=== PATIENT | male | born 2000 | race Caucasian/White ===

== ENCOUNTER 2021-12-22 19:28 | Inpatient (IN) | payer MEDICAID, OTHER ==
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
--- NOTE | 2021-12-22 20:54 | XR ---
EXAMINATION TYPE: XR chest 1V portable DATE OF EXAM: 12/22/2021 COMPARISON: NONE HISTORY: Trauma. Pain TECHNIQUE: Single view FINDINGS: Heart and mediastinum are normal. Lungs are clear. Diaphragm is normal. Bony thorax is inta ct. IMPRESSION: Normal chest.
--- NOTE | 2021-12-22 21:04 | XR ---
EXAMINATION TYPE: XR pelvis AP view DATE OF EXAM: 12/22/2021 COMPARISON: NONE HISTORY: Trauma. Pain TECHNIQUE: 2 views FINDINGS: The pelvic ring is intact. The proximal femurs and hip joints are intact. Sacroiliac joints appear normal. IMPRESSION: Normal pelvis exam. No fracture.
[2021-12-22 21:32] LABS: Amphetamine Screen,Urine Not Detected (NotDetected); Barbiturate Screen,Urine Not Detected (NotDetected); Benzodiazepines Screen,Urine Not Detected (NotDetected); Cocaine Screen,Urine Not Detected (NotDetected); Methadone Screen, Urine Not Detected (NotDetected); Opiate Screen,Urine Not Detected (NotDetected); Oxycodone Screen, Urine Not Detected (NotDetected); Phencyclidine Screen,Urine Not Detected (NotDetected); Tricyclic Antidepressant,Urine Not Detected (NotDetected); Urn Cannabinoid Scrn Not Detected (NotDetected)
[2021-12-23 02:14] LABS: Basophils % (A) 1 %; Eosinophils # (A) 0.1 k/uL (0-0.7); Eosinophils % (A) 2 %; HCT 45.1 % (39.0-53.0); HGB 14.8 gm/dL (13.0-17.5); Lymphocytes # (A) 1.8 k/uL (1.0-4.8); Lymphocytes % (A) 28 %; MCH 30.9 pg (25.0-35.0); MCHC 32.9 g/dL (31.0-37.0); MCV 94.1 fL (80.0-100.0); Mean Platelet Volume 9.7; Monocytes # (A) 0.4 k/uL (0-1.0); Monocytes % (A) 6 %; Neutrophils % (A) 62 %; Platelet Count 183 k/uL (150-450); RDW 12.8 % (11.5-15.5); WBC 6.4 k/uL (3.8-10.6)
[2021-12-23 02:22] LABS: African American GFR (CKD) >90 (>60 ml/min/1.73 sqM); Anion Gap 9 mmol/L; Blood Urea Nitrogen 11 mg/dL (9-20); Calcium 9.4 mg/dL (8.4-10.2); Carbon Dioxide 25 mmol/L (22-30); Chloride 105 mmol/L (98-107); Glucose 99 mg/dL (74-99); Non-African American GFR(CKD) >90 (>60 ml/min/1.73 sqM); Potassium 4.2 mmol/L (3.5-5.1); Sodium 139 mmol/L (137-145)
[2021-12-23] MEDS: DIVALPROEX 250 MG TABLET.DR PO SCH ×3 (15:16→20:54)
[2021-12-23] MEDS ORDERED: LORazepam 2 MG/ML INJ IM ONE (17:50)
[2021-12-23] MEDS: ARIPiprazole 10 MG TAB PO SCH (20:54)
[2021-12-24] MEDS: DIVALPROEX 250 MG TABLET.DR PO SCH ×3 (10:57→22:23)
[2021-12-24] MEDS ORDERED: LORazepam 1 MG TAB PO STA (14:15)
[2021-12-24] MEDS: ARIPiprazole 10 MG TAB PO SCH (22:24)
[2021-12-25] MEDS: DIVALPROEX 250 MG TABLET.DR PO SCH ×4 (08:57→21:02)
[2021-12-25] MEDS ORDERED: LORazepam 1 MG TAB PO PRN (12:01)
[2021-12-25] MEDS ORDERED: HALOPERIDOL LACTATE 5 MG/ML 1 ML VIAL IM PRN (12:01)
[2021-12-25] MEDS ORDERED: MAG HYDROX/AL HYDROX/SIMETH 30 ML CUP PO PRN (12:01)
[2021-12-25] MEDS ORDERED: ACETAMINOPHEN TAB 325 MG TAB PO PRN (12:01)
[2021-12-25] MEDS ORDERED: MAGNESIUM HYDROXIDE 2,400 MG/10 ML CUP PO PRN (12:01)
[2021-12-25] MEDS ORDERED: LORazepam 2 MG/ML INJ IM PRN (12:03)
[2021-12-25] MEDS ORDERED: haloperidoL 5 MG TAB PO PRN (12:03)
[2021-12-25] MEDS: ARIPiprazole 10 MG TAB PO SCH (20:39)
[2021-12-26] MEDS: DIVALPROEX 250 MG TABLET.DR PO SCH (08:09)
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
[2021-12-26] MEDS: hydrOXYzine pamoate 25 MG CAP PO SCH ×2 (15:19→22:14)
[2021-12-26 18:19] LABS: Chol/HDL Ratio 3.57 Ratio; LDL Cholesterol,Calculated 116.5 mg/dL (0.0-131.0)
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
[2021-12-26] MEDS ORDERED: DIVALPROEX ER 500 MG TAB.ER.24H PO SCH (21:00)
[2021-12-26] MEDS: ARIPiprazole 10 MG TAB PO SCH (22:14)
[2021-12-27] MEDS: hydrOXYzine pamoate 25 MG CAP PO SCH ×3 (08:50→20:58)
--- NOTE | 2021-12-27 14:29 | P.PN ---
Progress Note - Text Progress Note Date: 12/27/21 Interval History: Patient was seen resting in bed and was directable and agreeable to speak with television script writer in his room. Currently, the patient is not reporting any suicidal or homicidal ideation, and/or plan. He is not reporting any auditory or visual hallucinations. He is denying any paranoia or other delusions. He has been adherent with his medications and is not reporting any significant side effects at this time. Initially, there was a plan to discharge the patient today however the patient's family expressed significant concerns. In particular, the patient's mother reported that the patient contacted his sister and verbalized a desire to kill himself. Currently, the patient denies this. He is however agreeable to continued inpatient psychiatric admission with plans to initiate Clozaril to address psychosis as well as suicidal ideation. Mental Status Exam: General Appearance: Patient appears to be stated age is alert, directable, and cooperative. Behavior: Patient is calmly seated without any agitated behavior. Speech: Patient's speech is fluent and nonpressured. Mood/Affect: Mood is "I feel okay," affect is congruent but blunted. Suicidality/Homicidality: Patient denies having any suicidal or homicidal ideation intent or plan. Perceptions: Patient denies any visual hallucinations and denies any auditory hallucinations Though content/process: There is no evidence of any delusional thought content and thought process is linear and goal-directed. Memory and concentration: AOX3, grossly intact for the purposes of this session Judgment and insight: Improving mildly Vital Signs Temp 97.9 F 12/27/21 06:50 Pulse 67 12/27/21 06:50 Resp 17 12/27/21 06:50 BP 96/52 12/27/21 06:50 Pulse Ox 99 12/27/21 06:50 FiO2 Laboratory Results - Last 24 Hours 12/23/21 12/23/21 12/26/21 01:58 09:04 15:[address] Glu mg/dL 123 Hemoglobin A1c 5.9 Triglycerides 87.00 Cholesterol 186.00 LDL Cholesterol, Calc 116.5 VLDL Cholesterol, Calc 17.40 HDL Cholesterol 52.10 Cholesterol/HDL Ratio 3.57 Valproic Acid 50.0 Assessment Schizophrenia Cannabis use disorder Tobacco use disorder Plan: -Patient continues to meet criteria for inpatient psychiatric admission for symptom stabilization and safety. Patient has signed adult voluntary form and medication consent and was placed in patient's chart. -Medications: Increase Depakote to 1250 mg by mouth at bedtime for mood stabilization Discontinue Abilify and start Clozaril 25 mg by mouth at bedtime for schizophrenia and for suicidal ideation We will need to confirm when the patient received his last dose of Abilify aristada or maintena. Vistaril 25 mg by mouth 3 times a day for anxiety -When necessary Ativan and Haldol for agitation/aggression. -SW on board for discharge planning. Encouraged the patient to participate in milieu.
[2021-12-27] MEDS: DIVALPROEX ER 250 MG TAB.ER.24H PO SCH (20:58)
[2021-12-27] MEDS: DIVALPROEX ER 500 MG TAB.ER.24H PO SCH (20:58)
[2021-12-27] MEDS ORDERED: cloZAPine 25 MG TAB PO SCH (21:00)
[2021-12-28] MEDS: hydrOXYzine pamoate 25 MG CAP PO SCH ×3 (08:58→21:02)
[2021-12-28] MEDS: NICOTINE GUM (POLACRILEX) 2 MG GUM BUCCAL PRN ×2 (08:59→18:48)
--- NOTE | 2021-12-28 12:01 | P.PN ---
Progress Note - Text Progress Note Date: 12/28/21 Interval History: Patient was seen resting in bed and was directable and agreeable to speak with telegraphic typewriter installer in the office. Patient reports that he is feeling well. He is currently denying any suicidal or homicidal ideation, intention, and/or plan. He is denying any auditory or visual hallucinations. He reports no paranoia or other delusions. The patient denies ever contacting his family and endorsing suicidal ideation to them. He states however that he will continue to take medications and follow the recommendations of his medical team while he is here in the hospital. He is agreeable to the transition to Clozaril in order to address psychosis and suicidal thoughts. Mental Status Exam: General Appearance: Patient appears to be stated age is alert, directable, and cooperative. Behavior: Patient is calmly seated without any agitated behavior. Speech: Patient's speech is fluent and nonpressured. Mood/Affect: Mood is "doing all right" affect is congruent but constricted Suicidality/Homicidality: Patient denies having any suicidal or homicidal ideation intent or plan. Perceptions: Patient denies any visual hallucinations and denies any auditory hallucinations Though content/process: There is no evidence of any delusional thought content and thought process is linear and goal-directed. Memory and concentration: AOX3, grossly intact for the purposes of this session Judgment and insight: Improving mildly Vital Signs Temp 97.9 F 12/28/21 07:12 Pulse 72 12/28/21 07:12 Resp 16 12/28/21 07:12 BP 99/58 12/28/21 07:12 Pulse Ox 99 12/28/21 07:12 FiO2 Assessment Schizophrenia Cannabis use disorder Tobacco use disorder Plan: -Patient continues to meet criteria for inpatient psychiatric admission for symptom stabilization and safety. Patient has signed adult voluntary form and medication consent and was placed in patient's chart. -Medications: Continue Depakote 1250 mg by mouth at bedtime for mood stabilization Increase Clozaril to 50 mg by mouth at bedtime for schizophrenia and suicidal ideation We will draw CBC on Friday in anticipation of discharge on Friday. We will start metformin over this weekend in order to address possible side effects of weight gain and hyperglycemia secondary to antipsychotic medications Vistaril 25 mg by mouth 3 times a day for anxiety -When necessary Ativan and Haldol for agitation/aggression. -SW on board for discharge planning. Encouraged the patient to participate in milieu.
[2021-12-28] MEDS: cloZAPine 25 MG TAB PO SCH (21:01)
[2021-12-28] MEDS: DIVALPROEX ER 500 MG TAB.ER.24H PO SCH (21:01)
[2021-12-28] MEDS: DIVALPROEX ER 250 MG TAB.ER.24H PO SCH (21:01)
[2021-12-29] MEDS: hydrOXYzine pamoate 25 MG CAP PO SCH ×4 (08:48→21:05)
[2021-12-29] MEDS: NICOTINE GUM (POLACRILEX) 2 MG GUM BUCCAL PRN (08:48)
--- NOTE | 2021-12-29 20:07 | P.PN ---
Progress Note - Text Progress Note Date: 12/29/21 Interval history: Patient was seen resting in bed and was directable and agreeable to speak with functional tester typewriters. He reports improved mood, good sleep and appetite. At this time, patient denies any suicidal or homicidal ideations intent or plan. He denies any auditory or visual hallucinations. Patient denies any side effects from the medications and has been compliant with meds. He reports feeling "more stable" on the Clozapine. He attended one group today. Mental status exam: General Appearance: Patient appears to be stated age, laying in bed with covers on, good eye contact. Behavior: No agitated behavior. Patient is calm and directable. Speech: Patient's speech is fluent and non-pressured. Mood/Affect: Mood is improving, affect is congruent and constricted. Suicidality/Homicidality: Patient denies having any suicidal or homicidal ideation intent or plan. Perceptions: Patient denies any auditory or visual hallucinations. Though content/process: There is no evidence of any delusional thought content and thought process is linear and goal-directed. Memory and concentration: AOX3, grossly intact for the purposes of this session Judgment and insight: improving mildly Assessment/Plan: Continue with current diagnosis. Patient continues to meet criteria for in patient psychiatric admission for symptom stabilization and safety. Patient will be maintained on current psychotropic medication regimen. Monitor for medication compliance and for any psychotropic medication side effects. Will continue to monitor ongoing response to treatment. Encouraged participation in milieu.
[2021-12-29] MEDS: DIVALPROEX ER 500 MG TAB.ER.24H PO SCH (20:11)
[2021-12-29] MEDS: cloZAPine 25 MG TAB PO SCH (20:11)
[2021-12-29] MEDS: DIVALPROEX ER 250 MG TAB.ER.24H PO SCH (20:11)
[2021-12-30] MEDS: NICOTINE GUM (POLACRILEX) 2 MG GUM BUCCAL PRN ×2 (09:04→13:21)
[2021-12-30] MEDS: hydrOXYzine pamoate 25 MG CAP PO SCH ×4 (09:04→20:07)
[2021-12-30] MEDS: metFORMIN 500 MG TAB PO SCH (18:20)
--- NOTE | 2021-12-30 19:11 | P.PN ---
Progress Note - Text Progress Note Date: 12/30/21 Interval history: Patient was seen walking in the hallway and was directable and agreeable to speak with typewriter mechanic. He reports improved mood, good sleep and appetite. At this time, patient denies any suicidal or homicidal ideations intent or plan. He denies any auditory or visual hallucinations. Patient denies any side effects from the medications and has been compliant with meds. Mental status exam: General Appearance: Patient appears to be stated age, dressed in clean casual attire, good eye contact. Behavior: No agitated behavior. Patient is calm and directable. Speech: Patient's speech is fluent and non-pressured. Mood/Affect: Mood is improving, affect is congruent and constricted. Suicidality/Homicidality: Patient denies having any suicidal or homicidal ideation intent or plan. Perceptions: Patient denies any auditory or visual hallucinations. Though content/process: There is no evidence of any delusional thought content and thought process is linear and goal-directed. Memory and concentration: AOX3, grossly intact for the purposes of this session Judgment and insight: improving mildly Assessment/Plan: Continue with current diagnosis. Patient continues to meet criteria for inpatient psychiatric admission for symptom stabilization and safety. Patient will be maintained on current psychotropic medication regimen. Monitor for medication compliance and for any psychotropic medication side effects. Will continue to monitor ongoing response to treatment. Encouraged participation in milieu.
[2021-12-30] MEDS: cloZAPine 25 MG TAB PO SCH (20:06)
[2021-12-30] MEDS: DIVALPROEX ER 500 MG TAB.ER.24H PO SCH (20:07)
[2021-12-30] MEDS: DIVALPROEX ER 250 MG TAB.ER.24H PO SCH (20:07)
[2021-12-31 06:59] VITALS: BP 134/60; PULSE 61; RESP 16; TEMP 98.1
[2021-12-31] MEDS: hydrOXYzine pamoate 25 MG CAP PO SCH ×4 (10:09→20:05)
[2021-12-31] MEDS: metFORMIN 500 MG TAB PO SCH ×2 (10:09→17:06)
--- NOTE | 2021-12-31 13:47 | P.PN ---
Progress Note - Text Progress Note Date: 12/31/21 Interval History: Patient was seen resting in bed and was directable and agreeable to speak with commercial real estate underwriter in the office. Patient was that he is feeling well. He is not reporting any suicidal or homicidal ideation, intention, and/or plan today. He is not reporting any auditory or visual hallucinations. He denies any paranoia or other delusions. Patient has been adherent with his medication and is not reporting any significant side effects this time. The patient was informed that he is on metformin in order to decrease the likelihood of weight gain while being prescribed antipsychotic medication. He is in agreement with this medication. This provider discussed the plan with his father who is in agreement. Mental Status Exam: General Appearance: Patient appears to be stated age is alert, directable, and cooperative. Behavior: Patient is calmly seated without any agitated behavior. Speech: Patient's speech is fluent and nonpressured. Mood/Affect: Mood is "feeling pretty good" affect is congruent but constricted Suicidality/Homicidality: Patient denies having any suicidal or homicidal ideation intent or plan. Perceptions: Patient denies any visual hallucinations and denies any auditory hallucinations Though content/process: There is no evidence of any delusional thought content and thought process is linear and goal-directed. Memory and concentration: AOX3, grossly intact for the purposes of this session Judgment and insight: Improving mildly Vital Signs Temp 98.1 F 12/31/21 06:58 Pulse 61 12/31/21 06:58 Resp 16 12/31/21 06:58 BP 134/60 12/31/21 06:58 Pulse Ox 99 12/31/21 06:58 FiO2 Intake & Output 12/30/21 12/31/21 12/31/21 18:59 06:59 18:59 Weight 93.7 kg Assessment Schizophrenia Cannabis use disorder Tobacco use disorder Plan: -Patient continues to meet criteria for inpatient psychiatric admission for symptom stabilization and safety. Patient has signed adult voluntary form and medication consent and was placed in patient's chart. -Medications: Continue Depakote 1250 mg by mouth at bedtime for mood stabilization Continue Clozaril 50 mg by mouth at bedtime for schizophrenia and suicidal ideation We will draw CBC on Friday in anticipation of discharge on Friday. Continue metformin 500 mg by mouth twice a day with meals for side effect prophylaxis Vistaril 25 mg by mouth 3 times a day for anxiety -When necessary Ativan and Haldol for agitation/aggression. -SW on board for discharge planning. Encouraged the patient to participate in milieu.
[2021-12-31] MEDS: DIVALPROEX ER 250 MG TAB.ER.24H PO SCH (20:05)
[2021-12-31] MEDS: DIVALPROEX ER 500 MG TAB.ER.24H PO SCH (20:05)
[2021-12-31] MEDS: cloZAPine 25 MG TAB PO SCH (20:05)
[2022-01-01] MEDS: hydrOXYzine pamoate 25 MG CAP PO SCH (09:19)
[2022-01-01] MEDS: metFORMIN 500 MG TAB PO SCH (09:21)
[2022-01-01 10:10] LABS: Basophils # (A) 0.1 k/uL (0-0.2); Basophils % (A) 1 %; Eosinophils # (A) 0.1 k/uL (0-0.7); Eosinophils % (A) 1 %; HCT 51.5 % (39.0-53.0); HGB 16.1 gm/dL (13.0-17.5); Lymphocytes # (A) 1.6 k/uL (1.0-4.8); Lymphocytes % (A) 24 %; MCH 29.8 pg (25.0-35.0); MCHC 31.4 g/dL (31.0-37.0); Mean Platelet Volume 9.6; Monocytes # (A) 0.3 k/uL (0-1.0); Monocytes % (A) 5 %; Neutrophils # (A) 4.6 k/uL (1.3-7.7); Neutrophils % (A) 68 %; Platelet Count 193 k/uL (150-450); RBC 5.42 m/uL (4.30-5.90); RDW 12.7 % (11.5-15.5); WBC 6.8 k/uL (3.8-10.6)
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
== END 2022-01-01 13:00 | disposition home or self-care (01) | DRG 885 ==
LOC: EC 19:28 → 3MHU 12-25 11:59
PROVIDERS: ADMIT Psychiatry & Neurology Psychiatry; ATTEND Psychiatry & Neurology Psychiatry
DX: F20.9 Schizophrenia, unspecified (principal); R45.851 Suicidal ideations; F12.10 Cannabis abuse, uncomplicated; Z71.51 Drug abuse counseling and surveillance of drug abuser; F17.210 Nicotine dependence, cigarettes, uncomplicated; F41.9 Anxiety disorder, unspecified; N64.52 Nipple discharge; Z71.89 Other specified counseling; Z56.0 Unemployment, unspecified; Z28.21 Immunization not carried out because of patient refusal; Z88.0 Allergy status to penicillin; Z79.899 Other long term (current) drug therapy
CPT/HCPCS: 36415; 71045; 72170; 80048; 80061; 80164; 80306; 82075; 83036; 84443; 85025; 87635; 96372; 99285